=== PATIENT | female | born 1995 | race Two or more races ===

== ENCOUNTER 2021-06-02 03:51 | Emergency (ER) | payer BC ==
[~2021-06-02] VITALS: Ht 157.5 cm; Wt 59.0 kg
[2021-06-02 03:59] VITALS: BP 139/84
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
[2021-06-02] MEDS ORDERED: [UNRECOGNIZED DRUG - REMARK] (06:04)
== END 2021-06-02 06:23 | disposition short-term general hospital (02) ==
LOC: ER 03:51 → EEVIPCON 03:51 → ER 06:23
DX: Z91.410 Personal history of adult physical and sexual abuse (principal)
CPT/HCPCS: 99285-25